=== PATIENT | male | born 1965 | race Caucasian/White ===

== ENCOUNTER 2020-10-03 17:40 | Emergency (ER) | payer MEDICAID ==
[~2020-10-03] VITALS: Ht 172.7 cm; Wt 98.9 kg
[2020-10-03 17:50] VITALS: Ht 172.7 cm; Wt 98.9 kg
[2020-10-03 18:28] LABS: PLATELET COUNT 309 x10^3mcL (152-348); RED CELL DISTRIBUTION WIDTH 14.1 % (12.1-16.2)
[2020-10-03 18:35] LABS: CALCIUM 9.7 mg/dL (8.5-10.1); CARBON DIOXIDE 19.2 mmol/L (21-32); CHLORIDE SERUM 98 mmol/L (98-107); GFR1 > 60 mL/min; GLUCOSE SERUM 349 mg/dL (74-106); POTASSIUM SERUM 3.6 mmol/L (3.5-5.1); SODIUM SERUM 135 mmol/L (136-145)
[2020-10-03 18:40] LABS: ALBUMIN 3.7 g/dL (3.4-5.0); ALKALINE PHOSPHATASE 106 U/L (46-116); ALT/SGPT 22 U/L (16-63); BILIRUBIN TOTAL 0.6 mg/dL (0.20-1.00)
[2020-10-03 18:55] LABS: AST/SGOT 39 U/L (15-37)
[2020-10-03 19:16] LABS: ATYPICAL LYMPH 3 %; BAND NEUTROPHIL 3 % (0-10); MONOCYTE 11 % (0-7); SEGMENTED NEUTROPHILS 49 % (37-75)
[2020-10-03 19:17] LABS: PLATELET MORPHOLOGY PLATELETS NORMAL; rbc morphology (normal/abnorm) NORMAL (NORMAL)
[2020-10-03] MEDS ORDERED: PREDNISONE20 MG PO (20:49)
[2020-10-03 21:35] VITALS: BP 149/86
== END 2020-10-03 21:35 | disposition home or self-care (01) ==
LOC: ED 17:40
PROVIDERS: Emergency Medicine
DX: E11.65 Type 2 diabetes mellitus with hyperglycemia (principal); J45.909 Unspecified asthma, uncomplicated; I10 Essential (primary) hypertension; E11.9 Type 2 diabetes mellitus without complications; Z89.029 Acquired absence of unspecified finger(s)
CPT/HCPCS: 82962; J7030

== ENCOUNTER 2020-10-05 11:59 | Emergency (ER) | payer MEDICAID ==
[~2020-10-05] VITALS: Ht 165.1 cm; Wt 97.1 kg
[~2020-10-05 11:59] MED LIST: PREDNISONE20 MG PO
[2020-10-05 12:12] VITALS: Ht 165.1 cm; Wt 97.1 kg
[2020-10-05 14:14] LABS: RED CELL DISTRIBUTION WIDTH 13.9 % (12.1-16.2)
[2020-10-05 14:16] LABS: BASOPHIL % 0.4 % (0.2-1.5); PLATELET COUNT 285 x10^3mcL (152-348)
[2020-10-05 14:27] LABS: CALCIUM 8.9 mg/dL (8.5-10.1); CARBON DIOXIDE 22.5 mmol/L (21-32); CHLORIDE SERUM 101 mmol/L (98-107); CREATININE SERUM 0.9 mg/dL (0.7-1.3); GFR1 > 60 mL/min; GLUCOSE SERUM 347 mg/dL (74-106); POTASSIUM SERUM 3.9 mmol/L (3.5-5.1); SODIUM SERUM 135 mmol/L (136-145)
[2020-10-05 14:32] LABS: ALKALINE PHOSPHATASE 91 U/L (46-116); ALT/SGPT 26 U/L (16-63); AST/SGOT 7 U/L (15-37); BILIRUBIN TOTAL 0.5 mg/dL (0.20-1.00); TOTAL PROTEIN, SERUM 6.9 g/dL (6.4-8.2)
[2020-10-05 14:35] LABS: ALBUMIN 3.2 g/dL (3.4-5.0)
[2020-10-05 17:40] VITALS: BP 133/87
== END 2020-10-05 17:40 | disposition home or self-care (01) ==
LOC: ED 11:59
PROVIDERS: Emergency Medicine
DX: J45.901 Unspecified asthma with (acute) exacerbation (principal); I10 Essential (primary) hypertension; E11.649 Type 2 diabetes mellitus with hypoglycemia without coma
CPT/HCPCS: 82962; 83880; J7030